=== PATIENT | female | born 1940 | race Caucasian/White ===

== ENCOUNTER 2019-11-17 17:23 | Outpatient (CLI) | payer MEDICARE, SELFPAY ==
[2019-11-17 17:58] LABS: Add Urine Microscopic? YES; Appearance Urine Clear (Clear); Bacteria Urine Trace /hpf; Bilirubin Urine Negative (Negative); Blood Urine Negative (Negative); Color Urine Yellow (Yellow); Glucose Urine UA Negative (Negative); Ketones Urine Negative (Negative); Leukocyte Esterase Ur 1+ LEU/UL (NEGATIVE); Nitrate Urine Negative (Negative); Protein Urine Negative (Negative); RBC Urine 0-2 /hpf (0-2); Specific Grav Ur 1.011 (1.001-1.035); Urobilinogen Urine Negative mg/dL (<2.0)
== END 2019-11-17 17:24 | disposition home or self-care (01) ==
PROVIDERS: PCP Internal Medicine; Visit Provider Physician Assistant
DX: R30.0 Dysuria (principal)
CPT/HCPCS: 81001; 87077; 87086; 87088; 87186

== ENCOUNTER 2019-12-02 11:08 | Outpatient (CLI) | payer MEDICARE, SELFPAY ==
--- NOTE | ~2019-12-02 | US_ITS ---
EXAMINATION: US abdomen complete DATE: 12/02/2019 11:52 INDICATION: Encounter for follow-up examination after completed treatment. Liver hemangioma. TECHNIQUE: Multiple grayscale and Doppler ultrasound images of the abdomen were obtained. COMPARISON: CT abdomen and pelvis 08/19/2017, ultrasound 05/24/2019, CT abdomen 03/02/2009 FINDINGS: The visualized portions of the head and body of the pancreas are normal. There is a 12 mm h yperechoic mass in right hepatic lobe. There are changes of resection of left hepatic lobe. There is normal flow in main portal vein. The gallbladder is absent. The common duct is normal and measures 3 mm. Abdominal aorta is normal in caliber. Inferior vena cava is not well-visualized. The spleen is no rmal in size. Right kidney measures 8.9 x 5.2 x 4.2 cm. There is a 1.1 cm cyst in right kidney. Left kidney measures 7.9 x 3.7 x 4.4 cm. IMPRESSION: 1. Stable chronic 12 mm liver mass, consistent with a hemangioma. 2. Mild atrophy of the kidneys. Reviewed, dictated and finalized at location A.
== END 2019-12-02 11:09 | disposition home or self-care (01) ==
PROVIDERS: PCP Internal Medicine; Visit Provider Physician Assistant
DX: Z08 Encounter for follow-up examination after completed treatment for malignant neoplasm (principal); Z85.05 Personal history of malignant neoplasm of liver
CPT/HCPCS: 76700

== ENCOUNTER 2019-12-21 14:24 | Outpatient (CLI) | payer MEDICARE, SELFPAY ==
--- NOTE | ~2019-12-21 | CT_ITS ---
EXAMINATION: CT abdomen pelvis w con EXAM DATE: 12/21/2019 14:48 INDICATION: Right lower quadrant pain, nausea. TECHNIQUE: Spiral CT of the abdomen and pelvis was performed following intravenous injection of 100 m L Omnipaque 350. Axial, coronal and sagittal images were reviewed. The dose-length product (DLP) fo r this examination was 414.47 mGy-cm. The exposure was tailored according to patient size (auto mA e xposure control), and iterative reconstruction (ASIR) was used as additional dose reduction technique . Comparison is made to prior examination from 08/19/2017. FINDINGS: Surgical changes from left liver lobectomy. Pancreas, spleen, adrenal glands are unremarkab le. Gallbladder not identified, patient likely has had cholecystectomy. Portal and splenic veins ar e patent. Kidneys enhance symmetrically. There is no hydronephrosis. The uterus is not identified and has likely been surgically resected. The bladder is unremarkable. There is no retroperitoneal or pelvic lymphadenopathy. There is mild scattered arteriosclerotic disease. The appendix is normal. There is mild sigmoid colonic diverticulosis. There is no adjacent inflammat ory change to suggest diverticulitis. The stomach and small bowel are unremarkable. There is expecte d amount of colonic stool. No free intraperitoneal gas. The heart is normal in size. There are n o pericardial or pleural effusions. The lung bases are unremarkable. There is grade 2 anterolisthes is L5 on S1 without spondylolysis, moderate to severe disc disease at that level and advanced lower l umbar facet arthropathy. Severe central canal stenosis L4-5 and L5-S1. IMPRESSION: 1. No acute intra-abdominal findings. 2. Advanced lumbar spondylosis with severe central canal stenosis L4-5 and L5-S1.. Reviewed, dictated and finalized at location A. IMPRESSION: 1. No acute intra-abdominal findings. 2. Advanced lumbar spondylosis with severe central canal stenosis L4-5 and L5- S1..
[2019-12-21 14:44] LABS: Estimated Glomerular Filt Rate > 60
== END 2019-12-21 14:25 | disposition home or self-care (01) ==
LOC: ANHIMG 14:26
PROVIDERS: PCP Internal Medicine
DX: R13.10 Dysphagia, unspecified (principal); R11.0 Nausea; M47.896 Other spondylosis, lumbar region
CPT/HCPCS: 36415; 74177; Q9967

== ENCOUNTER 2020-04-05 16:07 | Outpatient (CLI) | payer MEDICARE, SELFPAY ==
[2020-04-05 16:50] LABS: Add Urine Microscopic? YES; Appearance Urine Clear (Clear); Bilirubin Urine Negative (Negative); Blood Urine Negative (Negative); Color Urine Yellow (Yellow); Glucose Urine UA Negative (Negative); Ketones Urine Negative (Negative); Leukocyte Esterase Ur Trace LEU/UL (NEGATIVE); Nitrate Urine Negative (Negative); Protein Urine Negative (Negative); Specific Grav Ur 1.006 (1.001-1.035); Squamous Epithelial Cell Urine Rare /hpf (Few); Urobilinogen Urine Negative mg/dL (<2.0); WBC Urine 0-3 /hpf (0-3)
== END 2020-04-05 16:08 | disposition home or self-care (01) ==
LOC: ANHLAB 16:09
PROVIDERS: PCP Internal Medicine; Visit Provider Physician Assistant
DX: R30.0 Dysuria (principal)
CPT/HCPCS: 81001; 87086; 87088

== ENCOUNTER 2020-06-14 14:20 | Outpatient (CLI) | payer MEDICARE, SELFPAY ==
[2020-06-14 15:20] LABS: Add Urine Microscopic? YES; Appearance Urine Clear (Clear); Bilirubin Urine Negative (Negative); Blood Urine Negative (Negative); Color Urine Straw (Yellow); Glucose Urine UA Negative (Negative); Ketones Urine Negative (Negative); Leukocyte Esterase Ur Negative LEU/UL (NEGATIVE); Mucus Urine Rare /lpf; Nitrate Urine Negative (Negative); Protein Urine Negative (Negative); Specific Grav Ur 1.011 (1.001-1.035); Squamous Epithelial Cell Urine Rare /hpf (Few); Urobilinogen Urine Negative mg/dL (<2.0); WBC Urine 0-3 /hpf (0-3)
== END 2020-06-14 14:21 | disposition home or self-care (01) ==
LOC: ANHLAB 14:22
PROVIDERS: PCP Physician Assistant; Visit Provider Physician Assistant
DX: R30.0 Dysuria (principal)
CPT/HCPCS: 81001; 87086

== ENCOUNTER 2021-10-19 19:18 | Emergency (ER) | payer MEDICARE, SELFPAY ==
--- NOTE | 2021-10-19 19:21 | ED.SKABFB ---
HPI - Skin/Abscess/Foreign Bdy General Chief complaint: Skin/Abscess/Foreign Body Stated complaint: insect bite lt arm Time Seen by Provider: 10/19/21 19:20 Source: patient Mode of arrival: ambulatory Limitations: no limitations History of Present Illness HPI narrative: Ms. Jovel is a an 81-year-old female patient presenting to the clinic today with complaints of possible insect bite to her left arm. She reports that she first noticed this bite last night. States that the area itches a lot without any pain. Thinks that she may have been bitten by a brown recluse. complaint: insect bite/sting Related Data Home Medications Medication Instructions Recorded Confirmed aloe vera 25 mg capsule mg PO 04/16/19 07/13/21 ascorbic acid (vitamin C) 1,000 mg 1 gm PO DAILY 04/16/19 07/13/21 tablet cholecalciferol (vitamin D3) 100 4,000 unit PO DAILY 04/16/19 10/19/21 mcg (4,000 unit) capsule garlic extract 600 mg tablet 1,200 mg PO QAM AND QPM 04/16/19 07/13/21 glucosam 750 mg-chondroi 100 tablet PO 04/16/19 07/13/21 mg-hyalur 1.65 mg-CF borate 108 mg tablet ([facility] [employer] [facility]) hawthorn holliday 565 mg capsule mg PO 04/16/19 07/13/21 iodine 150 mcg tablet (Kelp 30,000 mcg PO .qd 04/16/19 07/13/21 (iodine)) lutein 20 mg tablet 20 mg PO DAILY 04/16/19 07/13/21 mecobalamin (vitamin B12) 1,000 1,000 mcg sublingual DAILY 04/16/19 07/13/21 mcg disintegrating tablet,sublingual pyridoxine (vitamin B6) 25 mg 25 mg PO DAILY 04/16/19 07/13/21 tablet thiamine HCl (vitamin B1) 250 mg 250 mg PO DAILY 04/16/19 07/13/21 tablet turmeric (bulk) 95 % powder % miscellaneous 04/16/19 07/13/21 (Curcumin) vitamin B complex 1 tablet PO DAILY 04/16/19 07/13/21 vitamin E (dl, acetate) 180 mg 400 unit PO DAILY 04/16/19 07/13/21 (400 unit) capsule Allergies Allergy/AdvReac Type Severity Reaction Status Date / Time No Known Allergies Allergy Verified 10/19/21 19:37 Review of Systems Review of Systems: Pertinent positives per HPI. Patient denies any fever, chills, rash, headache, visual changes, dizziness, cough, runny nose, sore throat, shortness of breath, chest pain, palpitations, nausea, vomiting, diarrhea, constipation, abdominal pain, or any urinary issues. PMFSH Family History Family History Father Hypertension Family history of coronary artery disease Mother Family history of coronary artery disease Other Family history of cardiovascular disease Family history of gout Social History Social History Smoking status: Former smoker Second hand tobacco smoke exposure: No Smoking end date: 05/26/91 Alcohol intake: never Substance use: never Comments At the time of my signature, I reviewed and agree with the nursing past medical, surgical, social, and family history. There is no relevant family history pertinent to the patient complaint. Exam Narrative: General: Well-developed, well nourished, in no apparent distress Head: Normocephalic, atraumatic. Cardio: Regular rate and rhythm, s1 and s2 normal, no murmur appreciated. Resp: Clear to auscultation bilaterally, no rhonchi, rales, wheezing or rubs. Integumentary: Cosmos, warm, and dry, has 2 x 2 centimeter indurated area to the left upper anterior forearm that is itchy and has very mild blistering. No redness or erythema noted. Course Course Emergency Course: Portions of this record may have been created with voice recognition software. Level of Care: Express Care Visit Vital Signs Vital signs: Vital signs reviewed MDM - Skin/Abscess/Foreign Bdy MDM Narrative Medical decision making narrative: At the time of visit patient is resting comfortably on the exam table. She has a localized allergic reaction to the left upper forearm from potential insect bite. I will go ahead and give her a prescription for some
[2021-10-19 19:30] VITALS: BP 185/83; PULSE 83; RESP 18; TEMP 36.3; O2SAT 100
== END 2021-10-19 19:40 | disposition home or self-care (01) ==
PROVIDERS: Emergency Provider Nurse Practitioner Family; PCP Internal Medicine
DX: S50.862A Insect bite (nonvenomous) of left forearm, initial encounter (principal); T63.481A Toxic effect of venom of other arthropod, accidental (unintentional), initial encounter; Z87.891 Personal history of nicotine dependence
CPT/HCPCS: 99213; G0463

== ENCOUNTER → 2022-04-23 11:40 | Outpatient (CLI) | payer MEDICARE, SELFPAY ==
--- NOTE | ~2022-04-23 | XR_ITS ---
EXAMINATION: XR ribs RT 2V w CXR 2V Exam Date/Time: 04/23/2022 11:44 CORPORATE QUALITY MANAGER HISTORY: cough for 2 weeks upper posterior right rib pain Comparison: 05/07/2019. RESULT: Lines, tubes, and devices: Cholecystectomy clips. Lungs and pleura: Minimal lateral costophrenic angle blunting. Linear and streaky right basilar opac ities. Cardiothymic silhouette: Stable. Other: No acute osseous or upper abdominal finding. IMPRESSION: Bibasilar atelectasis/consolidation. Possible trace right pleural effusion. No acute osseous finding in the ribs. Reviewed, dictated and finalized at location K. ORATE QUALITY MANAGER
== END ==
PROVIDERS: PCP Internal Medicine; Visit Provider Physician Assistant
DX: R05.9 Cough, unspecified (principal); R10.11 Right upper quadrant pain; R91.8 Other nonspecific abnormal finding of lung field
CPT/HCPCS: 71046; 71100

== ENCOUNTER 2023-02-24 20:08 | Emergency (ER) | payer MEDICARE, SELFPAY ==
--- NOTE | ~2023-02-24 | CT_ITS ---
Non-contrast Head CT History: Status post fall Technique: Axial non-contrast imaging of the brain was performed. Dose reduction technique was used on this scan by utilizing automated exposure control and iterative reconstruction technique. The dose -length product (DLP) was 605.33 mGy-cm. Findings: There is no evidence of intracranial hemorrhage, mass lesion, or acute infarct. Brain par enchyma appears normal. The ventricles and subarachnoid spaces are normal in size. The calvarium ap pears normal. The visualized paranasal sinuses and mastoid air cells are clear. Impression: No significant abnormality seen. Reviewed, dictated and finalized at location . Impression: No significant abnormality seen.
--- NOTE | ~2023-02-24 | CT_ITS ---
CT Scan of the Chest without Contrast: Clinical Indication: Chest wall trauma Technique: Contiguous sections were acquired throughout the chest without intravenous contrast. Dose reduction technique was used on this scan by utilizing automated exposure control and iterative recon struction technique. The dose-length product (DLP) was 235.71 mGy-cm. Findings: There is no evidence of any significant mediastinal, hilar or axillary lymphadenopathy. The mediastin al soft tissues appear normal. There is no evidence of pleural or pericardial effusion. The lungs are clear, aside from bibasilar linear scarring. There are probable nondisplaced fractures of the left ninth, 10th, 11th ribs. Images through the upper abdomen reveal no abnormalities. Impression: Suspected nondisplaced fractures of the left ninth, 10th, 11th ribs. No pneumothorax. Linear bibasilar pulmonary scarring. Reviewed, dictated and finalized at [facility]. Impression: Suspected nondisplaced fractures of the left ninth, 10th, 11th ribs. No pneumothorax. Linear bibasilar pulmonary scarring.
[2023-02-24 20:19] VITALS: BP 162/63; PULSE 61; RESP 15; TEMP 36.4; O2SAT 100
[2023-02-25 01:47] VITALS: BP 169/82; PULSE 60; RESP 15; TEMP 36.4; O2SAT 100
[2023-02-25] MEDS: IBUPROFEN 600 MG TABLET PO (02:41)
--- NOTE | 2023-02-25 03:03 | ED.FALL ---
HPI - Fall General Chief Complaint: Fall Stated Complaint: fall Time Seen by Provider: 02/25/23 02:05 History of Present Illness HPI Narrative: Patient brought to the emergency department by her daughter. Patient was carrying food into the house when she walked through the doorway she thinks that her might of accidentally let go of the door and it hit her. Patient fell hitting the left side of her head and left side of her chest. Patient denies any other injuries. Denies loss of consciousness does not take blood thinners. Related Data Home Medications Medication Instructions Recorded Confirmed aloe vera 25 mg capsule mg PO 04/16/19 04/26/22 ascorbic acid (vitamin C) 1,000 mg 1 gm PO DAILY 04/16/19 04/26/22 tablet cholecalciferol (vitamin D3) 100 4,000 unit PO DAILY 04/16/19 04/26/22 mcg (4,000 unit) capsule garlic extract 600 mg tablet 1,200 mg PO QAM AND QPM 04/16/19 04/26/22 glucosam 750 mg-chondroi 100 tablet PO 04/16/19 04/26/22 mg-hyalur 1.65 mg-CF borate 108 mg tablet ([facility]) hawthorn holliday 565 mg capsule mg PO 04/16/19 04/26/22 iodine 150 mcg tablet (Kelp 30,000 mcg PO .qd 04/16/19 04/26/22 (iodine)) lutein 20 mg tablet 20 mg PO DAILY 04/16/19 04/26/22 mecobalamin (vitamin B12) 1,000 1,000 mcg sublingual DAILY 04/16/19 04/26/22 mcg disintegrating tablet,sublingual pyridoxine (vitamin B6) 25 mg 25 mg PO DAILY 04/16/19 04/26/22 tablet thiamine HCl (vitamin B1) 250 mg 250 mg PO DAILY 04/16/19 04/26/22 tablet turmeric (bulk) 95 % powder % miscellaneous 04/16/19 04/26/22 (Curcumin) vitamin B complex 1 tablet PO DAILY 04/16/19 04/26/22 vitamin E (dl, acetate) 180 mg 400 unit PO DAILY 04/16/19 04/26/22 (400 unit) capsule zinc acetate 50 mg (zinc) capsule 50 mg PO DAILY 08/14/22 (Galzin) Allergies Allergy/AdvReac Type Severity Reaction Status Date / Time No Known Allergies Allergy Verified 08/14/22 13:21 Review of Systems Review of Systems: Review of systems negative except what is documented in the [facility] Past Medical History Medical History (Updated 02/25/23 @ 07:07 by Jasmin Ace MD) Hemangioma of liver Hyperlipidemia Hypertension Family History Family History Father Hypertension Family history of coronary artery disease Mother Family history of coronary artery disease Other Family history of cardiovascular disease Family history of gout Social History Social History Smoking status: Former smoker Second hand tobacco smoke exposure: No Smoking end date: 05/26/91 Alcohol intake: never Substance use: never Lack of Transportation: No Lack of Food: Never True Current Housing: I Have Housing Concerned About Future Housing: No Difficulty Paying Gas/Electric Bills: No Difficulty Paying for Meds: No Currently Unemployed: No Education: Trade/Vocational Certificate Difficulty w/ Childcare or Family Care: No Exam Narrative: GENERAL: Well-appearing, well-nourished, and in no acute distress. HEAD: Normocephalic, left face contusion EYES: PERRLA and EOMI. ENT: Nares clear, no rhinorrhea or epistaxis. Mucous membranes moist. NECK: Supple. CHEST: Clear to auscultation. No respiratory distress. Left lateral chest and posterior chest tender to palpation HEART: Regular rate and rhythm. ABDOMEN: Soft, nontender, nondistended. EXTREMITIES: Normal range of motion. No edema. SKIN: Warm, dry, no rash. NEURO: No focal deficits. Alert and oriented x3. PSYCH: Normal mood and affect. Course Course Emergency Course: Differential diagnosis includes but not limited to intracranial injury, skull fracture, concussion, chest wall contusion, rib fractures Vital Signs Vital signs: Vital Signs Temperature 36.4 C 02/24/23 20:19 Pulse Rate 61 02/24/23 20:19 Respiratory Rate 15
[2023-02-25 04:08] VITALS: BP 171/67; PULSE 50; RESP 15; O2SAT 100
[2023-02-25] MEDS: traMADol HCL (*CRX) 50 MG TABLET PO (05:28)
[2023-02-25 06:06] VITALS: BP 150/79; PULSE 64; RESP 15; O2SAT 96
[2023-02-25 07:31] VITALS: BP 143/67; PULSE 58; RESP 15; O2SAT 95
== END 2023-02-25 07:32 | disposition home or self-care (01) ==
PROVIDERS: Emergency Provider Emergency Medicine; PCP Physician Assistant
DX: S09.90XA Unspecified injury of head, initial encounter (principal); S22.42XA Multiple fractures of ribs, left side, initial encounter for closed fracture; I10 Essential (primary) hypertension; E78.5 Hyperlipidemia, unspecified; W18.30XA Fall on same level, unspecified, initial encounter
CPT/HCPCS: 70450; 71250; 99284; A9270

== ENCOUNTER 2025-02-07 10:00 | Outpatient (CLI) | payer MEDICARE, SELFPAY ==
--- NOTE | ~2025-02-07 | DEXA_ITS ---
Bone Density Report Name: ELVIN JACOBS Age: 84 Sex: Female Ethnicity: White Date of : 1940 Indication: postmenopausal; screening for osteoporosis; height loss; hysterectomy; Referring Provider: GUERA STEVEN Study: Bone densitometry was performed. Exam Date: February 07, 2025 Accession number: [id number] Bone Density: Region BMD T-score Z-score Classification AP Spine(L1, L2, L3) 1.157 1.3 4.0 Normal Femoral Neck (Left) 0.631 -2.0 0.5 Osteopenia Total Hip (Left) 0.864 -0.6 1.6 Normal Femoral Neck (Right) 0.747 -0.9 1.6 Normal Total Hip (Right) 0.913 -0.2 2.0 Normal Total Hip Mean 0.889 -0.4 1.8 Normal World Health Organization criteria for BMD impression classify patients as: Normal (T-score at or above -1.0), Osteopenia (T-score between -1.0 and -2.5), or Osteoporosis (T-score at or below -2.5). 10-year Fracture Risk(1): Major Osteoporotic Fracture 15% Hip Fracture 4.4% Reported Risk Factors: [place] (), Neck BMD=0.631, BMI=31.8 (1) FRAX(R) Version 3.08. Fracture probability calculated for an untreated patient. Fracture probability may be lower if the patient has received treatment. Clinical Information Provided by Patient: Has used the following medications: Vitamin D Has the following medical conditions: Hysterectomy Patient maximum height was 62 Menopause Age: 34 No regular weight bearing exercise Does not regularly consume dairy products Drinks caffeinated beverages Onset of menses at age 14 Number of children 5 Impression: The patient has low bone mass, based on the Left Femoral Neck T-score. The patient has an estimated ten-year risk of hip fracture of 4.4% and an estimated ten-year risk of major fracture of 15%, based on the WHO FRAX algorithm. Discussion: BONE DENSITY IS LOW AT ONE OR MORE SKELETAL SITES. THE PATIENT'S BMD AND CLINICAL RISK FACTORS CONTRIBUTE TO THIS PATIENT'S INCREASED RISK OF FRACTURE. This patient's lowest T-score is low at one or more skeletal sites. It meets the World Health Organization's (WHO) criteria for ?low bone mass? (T-score between -1.0 and -2.5). The patient's 10-year risk of hip fracture as calculated by FRAX exceeds the threshold where pharmacological therapy is recommended by the National Osteoporosis Foundation (NOF). However, all treatment decisions require clinical judgment and consideration of individual patient factors, including patient preferences, comorbidities, previous drug use, risk factors not captured in the FRAX model (e.g., frailty, falls, vitamin D deficiency, increased bone turnover, interval significant decline in bone density) and possible under or overestimation of fracture risk by FRAX. The patient should follow a healthful lifestyle (good nutrition with adequate calcium and vitamin D, and appropriate weight-bearing exercise). Follow-Up: Consider a repeat BMD and Vertebral Fracture Assessment (VFA) exam in 2 years or sooner if medically necessary, to reassess this patient's status. Reported by: ELGIN on 02/07/2025 10:50:00 AM. Reviewed, dictated and finalized at location A.
--- OUTSIDE RECORDS SUMMARY | 2025-02-07 11:13 | XMS_ITS | Clinical Summary ---
Author Organization [address] Address [address] [place] [id number] Care Team Providers Care Dry Molder Name Role Phone Wild Saha MD Primary Care Provider [phone] Allergies Active Allergy Reactions Criticality Noted Date Comments Ciprofloxacin Codeine Medications cyclobenzaprine (FLEXERIL) 5 mg tablet Take 5 mg by mouth nightly at bedtime 2 Active gabapentin (NEURONTIN) 300 mg capsule Take 300 mg by mouth 3 (three) times a day 1 Active lisinopriL (PRINIVIL,ZESTR IL) 10 mg tablet Take 10 mg by mouth daily [address] (PROTONIX) 20 mg EC tablet 0 Active triamcinolone (KENALOG) 0.1 % cream Apply topically daily 0 Active albuterol HFA (PROVENTIL HFA,VENTOLIN HFA,PROAIR HFA) 90 mcg/actuation inhalerIndicati ons:Wheezing Inhale 2 puffs every 6 (six) hours as needed for wheezing 1 each 3 Active Active Problems Problem Noted Date Diagnosed Date Abdominal pain, RUQ (right upper quadrant) 06/21 Fracture of wrist 12/27/2019 Sprain of right wrist 12/27/2019 Wrist pain, acute, right 12/27/2019 Blood in urine 2016 History of urinary stone 2016 Unspecified urinary incontinence 2016 Kidney lesion 2016 Surgical History Surgery Date Site/Laterality Comments BACK SURGERY Back Surgery - (Added by TW Conv) [place] CHOLECYSTECTOMY Cholecystectomy - (Added by TW Conv) KNEE SURGERY Knee Surgery - (Added by SAMIA Conv) Medical History Medical History Date Comments Personal history of other in fectious and parasitic diseases History of shingles - (Added by SAMIA Conv) Family History Medical History Relation Name Comments Hypertension Father Family history of hypertension - (Added by SAMIA Conv) Relation Name Status Comments Father Social History Tobacco Use Types Packs/Day Years Used Date Smoking Tobacco: Former Personal Safety Answer Date Recorded Getting School Help Needed Not on file 06/01 Comments Unknown Sex and Gender Information Value Date Recorded Sex Assigned at Not on file Legal Sex Female 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 TUTOR Gender Identity Not on file Sexual Orientation Not on file Obstetrics History Last Filed Vital Signs Vital Sign Reading Time Taken Comments Blood Pressure 136/74 05/27/2022 5:29 PM LITERACY TUTOR Pulse 88 05/27/2022 6:04 PM LITERACY TUTOR Temperature 36.8 C (98.3 F) 05/27/2022 5:29 PM LITERACY TUTOR Respiratory Rate 22 05/27/2022 5:29 PM LITERACY TUTOR Oxygen Saturation 98% 05/27/2022 6:04 PM LITERACY TUTOR Inhaled Oxygen Concentration - - Weight 68 kg (150 lb) 05/27/2022 5:29 PM LITERACY TUTOR Height 154.9 cm (5' 1) 2016 12:01 PM CDT Body Mass Index 28.34 2016 12:01 PM CDT Plan of Treatment Health Maintenance Due Date Last Done Comments Depression Screening 1941 Fall Risk Assessment 1941 Osteoporosis Screening-Bone Density Scan 1941 DTaP/Tdap/Td Vaccine (1 - Tdap) 1952 Hepatitis B Screening 1959 Pneumococcal vaccine 65+ (1 of 1 - PCV) 1991 Zoster Vaccine (1 of 2) 1991 Well Visit 65+ 2006 Influenza Vaccine (#1) 2025 Insurance [facility] MEDICARE [facility] MEDICARE Care Teams Dry Molder Relationship Specialty Start Date End Date Wild Saha MD [address] [facility] [address] [place] [address] PCP - General Internal Medicine 05/27/22
--- OUTSIDE RECORDS SUMMARY | 2025-02-07 11:13 | XMS_ITS | Clinical Summary ---
Author Organization [facility] Address [address] [place] [address] Care Team Providers Care Director Heart Name Role Phone Jaison Grover DO Primary Care Provider Source Comments [facility],non-owned Affiliates and Associated Physician Practices is amultiple site organization consisting of ambulatory clinics and hospital sitesin [place], [place], [place] and [place]. This disclosure is being madepursuant to the Care Everywhere program and may not contain all information available regarding this patient. Last updated 18.[facility] Allergies No known active allergies Medications * Be aware that medications may not be up to date on this document. Alwaysverify current medications with the patient. ibuprofen (MOTRIN) 200 MG tablet Take 200 mg by mouth every 6 hours as needed Active lisinopril (PRINIVIL;ZESTR IL) 5 MG tablet 06/11/2020 Act fatou triamcinolone acetonide (KENALOG) 0.1 % cream Apply to affected area once daily 11/17/2019 Active gabapentin (NEURONTIN) 300 MG capsule Take 1 (one) capsule by mouth 3 times daily 270 capsule 2 06/21/2020 Active Active Problems Problem Noted Date Diagnosed Date Abdominal pain, RUQ (right upper quadrant) 06/21 Social History Tobacco Use Types Packs/Day Years Used Date Smoking Tobacco: Never Smokeless Tobacco: Never Comments Unknown Sex and Gender Information Value Date Recorded Sex Assigned at Not on file Legal Sex Female 7:34 PM WORD PROCESSING OPERATOR Gender Identity Not on file Sexual Orientation Not on file Last Filed Vital Signs Vital Sign Reading Time Taken Comments Blood Pressure 151/78 06/21/2020 10:30 AM WORD PROCESSING OPERATOR Pulse 75 06/21/2020 10:30 AM WORD PROCESSING OPERATOR Temperature 36.2 C (97.1 F) 06/21/2020 10:30 AM WORD PROCESSING OPERATOR Respiratory Rate 18 06/21/2020 10:30 AM WORD PROCESSING OPERATOR Oxygen Saturation 100% 06/21/2020 10:30 AM WORD PROCESSING OPERATOR Inhaled Oxygen Concentration - - Weight 69.9 kg (154 lb 3.2 oz) 06/21/2020 10:30 AM WORD PROCESSING OPERATOR Height 154.9 cm (5' 1) 06/21/2020 10:30 AM WORD PROCESSING OPERATOR Body Mass Index 29.14 06/21/2020 10:30 AM WORD PROCESSING OPERATOR Plan of Treatment Health Maintenance Due Date Last Done Comments BONE DENSITY TESTING 1940 DTAP/TDAP/TD VACCINES (1 - Tdap) 1960 PNEUMOCOCCAL VACCINE 50+ (1 of 1 - PCV) 1991 ZOSTER VACCINE (1 of 2) 1991 Respiratory Syncytial Virus (RSV) Vaccine Pt: or over 60 yrs (1 - 1-dose 75+ series) 2016 DEPRESSION SCREENING 05/26/2024 COVID-19 VACCINE ( - 2023-2 5 season) 2025 INFLUENZA VACCINE (#1) 2025 HEPATITIS B VACCINE Aged Out No longe r eligible based on patient's age to complete this topic HIB VACCINE Aged Out No longer eligi ble based on patient's age to complete this topic HPV VACCINE Aged Out No longer eligi ble based on patient's age to complete this topic MENINGOCOCCAL (Group B) VACC INE SHARED DECISION-MAKING Aged Out No longer eligibl e based on patient's age to complete this topic MENINGOCOCCAL GROUPS A/C/Y/W VACCINE Aged Out No longer eligible b ased on patient's age to complete this topic Insurance MEDICARE [facility] Address: [address] [place] [address] Care Teams Director Heart Relationship Specialty Start Date End Date Jaison Grover DO PCP - General 08/24/08
== END 2025-02-07 10:01 | disposition home or self-care (01) ==
PROVIDERS: PCP Internal Medicine; Visit Provider Nurse Practitioner
DX: Z78.0 Asymptomatic menopausal state (principal); M85.852 Other specified disorders of bone density and structure, left thigh
CPT/HCPCS: 77080